=== PATIENT | male | born 1970 | race Caucasian/White ===

== ENCOUNTER 2017-08-06 13:41 | Observation (INO) | payer BC ==
[~2017-08-06] VITALS: Ht 177.8 cm; Wt 89.8 kg
[2017-08-06] MEDS ORDERED: ASPIRIN 81 MG CHEW PO STA (14:17)
[2017-08-06] MEDS ORDERED: LANS15CA6 PO (14:24)
[2017-08-06] MEDS ORDERED: ATOR-24 PO (14:24)
[2017-08-06] MEDS ORDERED: ASPI81TA28 PO (14:24)
[2017-08-06] MEDS ORDERED: BYS/5 PO (14:24)
--- NOTE | 2017-08-06 14:26 | DIAGNOSTIC IMAGING REPORT ---
CHEST ONE VIEW PORTABLE HISTORY: Atypical CHEST PAIN COMPARISON: None. FINDINGS: The lungs are clear. Cardiac silhouette is normal in size. No pleural effusions. No pneumothorax. Poststernotomy changes. IMPRESSION: No acute process. Electronically signed by: Jason Mendoza M.D. 08/06/2017 2:24 PM Dictated Date/Time: 08/06/2017 2:24 PM
[2017-08-06] MEDS ORDERED: NITROGLYCERIN 0.4 MG SL PER TAB CHARGE SL PRN (14:30)
[2017-08-06 14:32] LABS: PTT PATIENT 25.7 SECONDS (21.0-31.0)
[2017-08-06 14:35] LABS: HEMOGLOBIN 14.1 g/dL (14.0-18.0); MEAN CELL VOLUME 93.8 fL (80-100); MEAN CORPUSCULAR HEMOGLOBIN 32.3 pg (25-34); MEAN CORPUSCULAR HGB CONC 34.4 g/dl (32-36); RED CELL DISTRIBUTION WIDTH SD 40.2 fL (36.4-46.3)
[2017-08-06 14:39] LABS: ALBUMIN 3.6 gm/dl (3.4-5.0); ALT/SGPT 21 U/L (12-78); BLOOD UREA NITROGEN 13 mg/dl (7-18); CALCIUM 8.8 mg/dl (8.5-10.1); CARBON DIOXIDE 26 mmol/L (21-32); CREATININE 0.93 mg/dl (0.60-1.40); GLUCOSE 86 mg/dl (70-99); LIPASE 223 U/L (73-393); POTASSIUM 4.1 mmol/L (3.5-5.1); SODIUM 139 mmol/L (136-145)
[2017-08-06 14:43] LABS: MEAN PLATELET VOLUME 13.6 fL (7.4-10.4); PLATELET COUNT 108 K/uL (130-400)
[2017-08-06 14:44] LABS: ALKALINE PHOSPHATASE 81 U/L (45-117); AST/SGOT 14 U/L (15-37); BASO % 0.3 %; BASO ABS # 0.02 K/uL (0-0.2); EOS ABS # 0.15 K/uL (0-0.5); IG# 0.02 K/uL (0.00-0.02); LYMPH % 19.7 %; LYMPH ABS # 1.46 K/uL (1.2-3.4); MONO % 8.1 %; NEUT % 69.6 %; NEUT ABS # 5.15 K/uL (1.4-6.5); TOTAL PROTEIN 6.7 gm/dl (6.4-8.2)
--- NOTE | 2017-08-06 15:53 | EMERGENCY ROOM VISIT NOTE ---
History Report prepared by Rosibel: Rosario Perry Under the Supervision of: Dr. Jaylon Martino M.D. First contact with patient: 14:04 Chief Complaint: CHEST PAIN Stated Complaint: CHEST PAIN,ARM PAIN,NAUSEA,HEART SURGERY PT Nursing Triage Summary: pt reports chest pain started on friday has hx of open heart surgery. went to [facility] told he was lying about cp. pt reports feels like stabbing. radiates in left shoulder and arm. feels sob and dizzy. has heartburn. heart surgery in [facility] History of Present Illness The patient is a 46 year old white male with a past medical history of CABG, hypertension who presents to the ED with a cc of persistent left chest pain beginning this morning. The pain started while he was walking. He describes the pain as sharp. He had the same chest pain 2 days ago which occurred while he was walking. He notes he had similar pain prior to his CABG 3 years ago. He currently rates his discomfort as a 4-5/10 in severity. It was worse at onset. Positive left arm pain, left shoulder pain, SOB, dizziness, nausea, diaphoresis. Negative cough, fever, chills, leg swelling, leg pain. He is on baby aspirin. Source of History: patient Onset: this morning Position: chest (left) Symptom Intensity: 4-5/10 Quality: sharp Timing: other (persistent) Associated Symptoms: + diaphoresis, + SOB, + nausea, No fevers, No chills, No cough Note: Pt reports left shoulder pain, left arm pain, dizziness. Pt denies leg swelling/ pain. Review of Systems See HPI for pertinent positives and negatives. A total of ten systems were reviewed and were otherwise negative. Past Medical & Surgical Medical Problems: (1) Chest pain in adult Surgical Problems: (1) S/P CABG (coronary artery bypass graft) Family History No pertinent family history stated. Social History Smoking Status: Current Every Day Smoker Marital Status: Occupation Status: employed Current/Historical Medications Scheduled Aspirin (Aspirin Ec), 81 MG PO DAILY Atorvastatin (Lipitor), 40 MG PO HS Lansoprazole (Prevacid), 15 MG PO DAILY Nebivolol Hcl (Bystolic), 5 MG PO DAILY Allergies Coded Allergies: Penicillins (Unverified Allergy, Unknown, ., 08/06/17) Physical Exam Vital Signs Date Time Temp Pulse Resp B/P (MAP) Pulse Ox O2 Delivery O2 Flow Rate FiO2 08/06/17 17:31 60 18 125/84 95 Room Air 08/06/17 14:30 75 17 131/94 96 Room Air 08/06/17 14:28 96 Room Air 08/06/17 14:27 80 16 140/91 96 Room Air 08/06/17 14:01 75 08/06/17 13:43 36.3 98 18 148/95 98 Room Air Physical Exam GENERAL: Awake, alert, well-appearing, NAD HENT: Normocephalic, atraumatic. EYES: Normal conjunctiva. Sclera non-icteric. NECK: Supple. No nuchal rigidity. FROM. RESPIRATORY: CTAB, no rhonchi, wheezing, crackles CARDIAC: RRR, no MRG ABDOMEN: Soft, NTND, BS+ MSK: Midline sternotomy scar. No reproducible chest wall TTP. No calf pain. Negative Librado's sign. No pretibial edema. NEURO: GCS 15, CN 2-12 intact, moves all 4s on command SKIN: No rash or jaundice noted. Medical Decision & Procedures ER Provider Diagnostic Interpretation: Radiology results as stated below per my review and radiologist interpretation: CHEST ONE VIEW PORTABLE HISTORY: Atypical CHEST PAIN COMPARISON: None. FINDINGS: The lungs are clear. Cardiac silhouette is normal in size. No pleural effusions. No pneumothorax. Poststernotomy changes. IMPRESSION: No acute process. Electronically signed by: Jason Mendoza M.D. 08/06/2017 2:24 PM Dictated Date/Time: 08/06/2017 2:24 PM Laboratory Results 08/06/17 14:00 Red Blood Count 4.37, Mean Corpuscular Volume 93.8, Mean Corpuscular Hemoglobin 32.3, Mean Corpuscular Hemoglobin Concent 34.4, Mean Platelet Volume 13.6, Neutrophils (%) (Auto) 69.6, Lymphocytes (%) (Auto) 19.7, Monocytes (%) (Auto) 8.1, Eosinophils (%) (Auto) 2.0, Basophils (%) (Auto) 0.3, Neutrophils # (Auto) 5.15, Lymphocytes # (Auto) 1.46, Monocytes # (Auto) 0.60, Eosinophils # (Auto) 0.15, Basophils # (Auto) 0.02 08/06/17 14:00 Test 08/06/17 14:00 08/06/17 18:03 White Blood Count 7.40 K/uL (4.8-10.8) Red Blood Count 4.37 M/uL (4.7-6.1) Hemoglobin 14.1 g/dL (14.0-18.0) Hematocrit 41.0 % (42-52) Mean Corpuscular Volume 93.8 fL (80-100) Mean Corpuscular Hemoglobin 32.3 pg (25-34) Mean Corpuscular Hemoglobin Concent 34.4 g/dl (32-36) Platelet Count 108 K/uL (130-400) Mean Platelet Volume 13.6 fL (7.4-10.4) Neutrophils (%) (Auto) 69.6 % Lymphocytes (%) (Auto) 19.7 % Monocytes (%) (Auto) 8.1 % Eosinophils (%) (Auto) 2.0 % Basophils (%) (Auto) 0.3 % Neutrophils # (Auto) 5.15 K/uL (1.4-6.5) Lymphocytes # (Auto) 1.46 K/uL (1.2-3.4) Monocytes # (Auto) 0.60 K/uL (0.11-0.59) Eosinophils # (Auto) 0.15 K/uL (0-0.5) Basophils # (Auto) 0.02 K/uL (0-0.2) RDW Standard Deviation 40.2 fL (36.4-46.3) RDW Coefficient of Variation 12.0 % (11.5-14.5) Immature Granulocyte % (Auto) 0.3 % Immature Granulocyte # (Auto) 0.02 K/uL (0.00-0.02) Platelet Estimate DECREASED Prothrombin Time 10.5 SECONDS (9.0-12.0) Prothromb Time International Ratio 1.0 (0.9-1.1) Activated Partial Thromboplast Time 25.7 SECONDS (21.0-31.0) Partial Thromboplastin Ratio 1.0 Anion Gap 8.0 mmol/L (3-11) Est Creatinine Clear Calc Drug Dose 111.2 ml/min Estimated GFR () 113.7 Estimated GFR (Non- 98.1 BUN/Creatinine Ratio 14.0 (10-20) Calcium Level 8.8 mg/dl (8.5-10.1) Total Bilirubin 0.3 mg/dl (0.2-1) Direct Bilirubin < 0.1 mg/dl (0-0.2) Aspartate Amino Transf (AST/SGOT) 14 U/L (15-37) Alanine Aminotransferase (ALT/SGPT) 21 U/L (12-78) Alkaline Phosphatase 81 U/L (45-117) Pro-B-Type Natriuretic Peptide 242 pg/ml (0-450) Total Protein 6.7 gm/dl (6.4-8.2) Albumin 3.6 gm/dl (3.4-5.0) Lipase 223 U/L (73-393) Laboratory results reviewed by me Medications Administered Medications (Trade) Dose Ordered Sig/Mo Route Start Time Stop Time Status Last Admin Dose Admin Aspirin (Aspirin Chew) 243 mg ONE STAT PO 08/06/17 14:17 08/06/17 14:18 DC 08/06/17 14:28 243 MG Nitroglycerin (Nitrostat Tab) 0.4 mg PRN PRN SL 08/06/17 14:30 08/06/17 17:09 DC 08/06/17 14:32 0.4 MG ECG Indication: chest pain Rate (beats per minute): 73 Rhythm: normal sinus Findings: Q waves (lead 3), other (normal axis, normal intervals, no other STS changes or TWI) ED Course 1413: The patient was evaluated in room A3. A complete history and physical exam was performed. 1508: Upon reexamination, the patient was stable. I discussed the test results and treatment plan with him. The patient will be evaluated for further management. 1525: I discussed the patient's case with Dr. Acuña, [facility] [place]. The patient will be evaluated for further treatment and disposition. Medical Decision The patient is a 46 year old white male with a past medical history of CABG, hypertension who presents to the ED with a cc of persistent left chest pain beginning this morning. Differential diagnosis: Etiologies such as cardiac ischemia, aortic dissection, pulmonary embolism, pneumonia, pneumothorax, musculoskeletal, infections, pericarditis, myocarditis , esophageal rupture, gastrointestinal, as well as others were entertained. Patient was seen and evaluated the bedside. Patient is a prior history of four- vessel CABG. Patient is complaining of some left-sided chest pain that does radiate to his left arm. Patient states is similar to the prior time when he had his [facility]. Patient does take a baby aspirin but no other additional medications with the exception of a possible statin. Patient states he was seen at [facility] 2 days ago and he was observed but he said no additional testing was done. Patient was given the rest of his full dose aspirin along with 3 nitroglycerin. Patient's chest pain was 3-4 out of 10. Patient denies any prior history of PE or DVT. EKG appears nonischemic patient has a negative chest x-ray. I did speak to the hospitalist given the patient's high risk next nature and chest pain. Patient was to be evaluated and treated per the medicine service. Medication Reconcilliation Current Medication List: was personally reviewed by me Blood Pressure Screening Patient's blood pressure: Elevated blood pressure Blood pressure disposition: Referred to PCP Consults Time Called: 1509 Consulting Physician: Dr. Acuña, [facility] [place]ist Returned Call: [phone] Discussed the patient's case. The patient will be evaluated for further treatment and disposition. Impression Primary Impression: Atypical chest pain Scribe Attestation The scribe's documentation has been prepared under my direction and personally reviewed by me in its entirety. I confirm that the note above accurately reflects all work, treatment, procedures, and medical decision making performed by me. Departure Information Dispostion Being Evaluated By Hospitalist Referrals No Doctor, Assigned (PCP) Patient Instructions My [facility]
[2017-08-06] MEDS ORDERED: ONDANSETRON INJ 2 MG/ML 2 ML VIAL IV PRN (16:30)
[2017-08-06] MEDS ORDERED: MAGNESIUM HYDROXIDE SUSP 30 ML UDC PO PRN (16:30)
[2017-08-06] MEDS ORDERED: POLYETHYLENE (MIRALAX) 17 GM PACK PO PRN (16:30)
[2017-08-06] MEDS ORDERED: IV FLUIDS COMPLETED PRN (16:30)
[2017-08-06] MEDS ORDERED: ALUMINUM/MAGNESIUM/SIMETH (MAALOX MAX) 30 ML UDC PO PRN (16:30)
[2017-08-06] MEDS ORDERED: ACETAMINOPHEN 325 MG TAB PO PRN (16:30)
[2017-08-06] MEDS ORDERED: ZOLPIDEM TARTRATE 5 MG TAB PO PRN (16:30)
--- NOTE | 2017-08-06 16:42 | History and Physical ---
History & Physical Date & Time of Service: Aug 06, 2017 at 16:25 Chief Complaint: Chest Pain,Arm Pain,Nausea,Heart Surgery Pt Primary Care Physician: No Doctor, Assigned History of Present Illness Source: patient 46 y/o M Hx HTN, HPL, smoker, CAD, - 4 vessel CABG 2013. Presents with central CP intermittent for 2-3 days. Initially occurred 2 days ago while walking and was accompanied by SOB, nausea and diaphoresis, radiating to his L arm. Pain recurred today and was relieved by NTG in the ER. He compares the pain to the pain which preceded his diagnosis of CAD and CABG 3 years ago. Past Medical/Surgical History 1) CAD - 4 vessel CABG 2013 2) HTN 3) HPL 4) Smoker Family History Both parents owing to heart disease - CAD and CHF - in their 80s. Father had first NM in his 40s. Sister had an NM at age 38. 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 Smoking Status: Current Every Day Smoker Marital Status: Occupational Status: employed Allergies Coded Allergies: Penicillins (Unverified Allergy, Unknown, ., 08/06/17) Home Medications Scheduled Aspirin (Aspirin Ec), 81 MG PO DAILY Atorvastatin (Lipitor), 40 MG PO HS Lansoprazole (Prevacid), 15 MG PO DAILY Nebivolol Hcl (Bystolic), 5 MG PO DAILY Review of Systems Constitutional: No fever, No chills, No sweats Eyes: No worsening of vision ENT: No hearing loss, No unusual epistaxis, No nasal symptoms Respiratory: No cough, No sputum, No wheezing Cardiovascular: No chest pain, No orthopnea, No PND Abdomen: No pain, No vomiting Musculoskeletal: No joint pain Genitourinary - Male: No hematuria, No dysuria, No urinary frequency, No urinary urgency Neurologic: No memory loss, No paralysis, No weakness Psychiatric: No depression symptoms Endocrine: No fatigue Hematologic / Lymphatic: No abnormal bleeding/bruising Integumentary: No rash Allergic / Immunologic: No environmental allergies Physical Exam Vital Signs Date Time Temp Pulse Resp B/P (MAP) Pulse Ox O2 Delivery O2 Flow Rate FiO2 08/06/17 14:30 75 17 131/94 96 Room Air 08/06/17 14:28 96 Room Air 08/06/17 14:27 80 16 140/91 96 Room Air 08/06/17 14:01 75 08/06/17 13:43 36.3 98 18 148/95 98 Room Air General Appearance: WD/WN, no apparent distress Head: normocephalic Eyes: normal inspection ENT: normal ENT inspection, pharynx normal Neck: supple, no JVD Respiratory/Chest: chest non-tender, lungs clear, normal breath sounds Cardiovascular: regular rate, rhythm, no edema, no gallop Abdomen/GI: normal bowel sounds, non tender, soft Back: normal inspection, no CVA tenderness Extremities/Musculoskelatal: normal inspection, no calf tenderness, normal capillary refill Neurologic/Psych: housing management officer II-XII nml as tested, no motor/sensory deficits, alert, oriented x 3 Skin: normal color, warm/dry, no rash Diagnostics Laboratory Results Results Past 24 Hours Test 08/06/17 14:00 Range/Units White Blood Count 7.40 4.8-10.8 K/uL Red Blood Count 4.37 4.7-6.1 M/uL Hemoglobin 14.1 14.0-18.0 g/dL Hematocrit 41.0 42-52 % Mean Corpuscular Volume 93.8 80-100 fL Mean Corpuscular Hemoglobin 32.3 25-34 pg Mean Corpuscular Hemoglobin Concent 34.4 32-36 g/dl Platelet Count 108 130-400 K/uL Mean Platelet Volume 13.6 7.4-10.4 fL Neutrophils (%) (Auto) 69.6 % Lymphocytes (%) (Auto) 19.7 % Monocytes (%) (Auto) 8.1 % Eosinophils (%) (Auto) 2.0 % Basophils (%) (Auto) 0.3 % Neutrophils # (Auto) 5.15 1.4-6.5 K/uL Lymphocytes # (Auto) 1.46 1.2-3.4 K/uL Monocytes # (Auto) 0.60 0.11-0.59 K/uL Eosinophils # (Auto) 0.15 0-0.5 K/uL Basophils # (Auto) 0.02 0-0.2 K/uL RDW Standard Deviation 40.2 36.4-46.3 fL RDW Coefficient of Variation 12.0 11.5-14.5 % Immature Granulocyte % (Auto) 0.3 % Immature Granulocyte # (Auto) 0.02 0.00-0.02 K/uL Platelet Estimate DECREASED Prothrombin Time 10.5 9.0-12.0 SECONDS Prothromb Time International Ratio 1.0 0.9-1.1 Activated Partial Thromboplast Time 25.7 21.0-31.0 SECONDS Partial Thromboplastin Ratio 1.0 Sodium Level 139 136-145 mmol/L Potassium Level 4.1 3.5-5.1 mmol/L Chloride Level 105 98-107 mmol/L Carbon Dioxide Level 26 21-32 mmol/L Anion Gap 8.0 3-11 mmol/L Blood Urea Nitrogen 13 7-18 mg/dl Creatinine 0.93 0.60-1.40 mg/dl Est Creatinine Clear Calc Drug Dose 111.2 ml/min Estimated GFR () 113.7 Estimated GFR (Non- 98.1 BUN/Creatinine Ratio 14.0 10-20 Random Glucose 86 70-99 mg/dl Calcium Level 8.8 8.5-10.1 mg/dl Total Bilirubin 0.3 0.2-1 mg/dl Direct Bilirubin < 0.1 0-0.2 mg/dl Aspartate Amino Transf (AST/SGOT) 14 15-37 U/L Alanine Aminotransferase (ALT/SGPT) 21 12-78 U/L Alkaline Phosphatase 81 45-117 U/L Troponin I < 0.015 0-0.045 ng/ml Pro-B-Type Natriuretic Peptide 242 0-450 pg/ml Total Protein 6.7 6.4-8.2 gm/dl Albumin 3.6 3.4-5.0 gm/dl Lipase 223 73-393 U/L Normal EKG Impression Assessment and Plan 46 y/o M Hx HTN, HPL, smoker, CAD, - 4 vessel CABG 2013. Presents with central CP intermittent for 2-3 days. Initially occurred 2 days ago while walking and was accompanied by SOB, nausea and diaphoresis, radiating to his L arm. Pain recurred today and was relieved by NTG in the ER. He compares the pain to the pain which preceded his diagnosis of CAD and CABG 3 years ago. 1) CAD/Chest pain - the pt states that he had some related symptoms 6 months ago and had a normal nuclear stress test at the time. If his pain continues to recur, we may then want to contact his gis analyst in [place] and discuss potential catheterization. He remains on ASA, statin therapy and a B macarena. Will initiate full-dose anticoagulation with any EKG changes or a troponin increase. 2) HTN - cont Nebivolol 3) HPL - cont Atorvastatin 4) Platelet count is slightly low - will repeat AM Full code - Lovenox prophylaxis Total time for this admit including review of labs, meds, imaging, EKG - discussion with pt and ER attending - 34 min Level of Care Telemetry Resuscitation Status FULL RESUSCITATION VTE Prophylaxis VTE Risk Assessment Done? Y/N: Yes Risk Level: Very Low Given or contraindicated: Enoxaparin (Lovenox)SQ
[2017-08-06 18:47] VITALS: BP 147/96; PULSE 67; TEMP 36.8; O2SAT 98; Ht 177.8 cm; Wt 89.8 kg
[2017-08-06] MEDS ORDERED: ENOXAPARIN 40 MG/0.4 ML SYR SC SCH (19:30)
[2017-08-06 20:00] VITALS: O2SAT 95
[2017-08-06] MEDS: NITROGLYCERIN 0.4 MG SL PER TAB CHARGE SL PRN (20:09)
[2017-08-06 20:10] VITALS: BP 121/69; PULSE 65; O2SAT 96
[2017-08-06 20:15] VITALS: BP 129/80; PULSE 69; O2SAT 95
[2017-08-06] MEDS: ATORVASTATIN 40 MG TAB PO SCH (21:22)
[2017-08-07] VITALS (19 sets, daily range): BP systolic 103–127; BP diastolic 62–84; PULSE 53–72; TEMP 36.3–36.8; O2SAT 95–98
[2017-08-07] MEDS: NITROGLYCERIN 0.4 MG SL PER TAB CHARGE SL PRN (05:46)
[2017-08-07 07:17] LABS: HEMATOCRIT 44.4 % (42-52); HEMOGLOBIN 15.8 g/dL (14.0-18.0); MEAN CELL VOLUME 93.3 fL (80-100); MEAN CORPUSCULAR HEMOGLOBIN 33.2 pg (25-34); MEAN CORPUSCULAR HGB CONC 35.6 g/dl (32-36); MEAN PLATELET VOLUME 13.3 fL (7.4-10.4); PLATELET COUNT 115 K/uL (130-400); RED CELL DISTRIBUTION WIDTH CV 12.1 % (11.5-14.5); WHITE BLOOD COUNT 7.51 K/uL (4.8-10.8)
[2017-08-07] MEDS: PANTOprazole SOD 40 MG TAB PO SCH (07:32)
[2017-08-07] MEDS: NEBIVOLOL HCL 5 MG TAB PO SCH (07:32)
[2017-08-07] MEDS: ASPIRIN 81 MG ECTAB PO SCH (07:33)
[2017-08-07] MEDS ORDERED: NITROGLYCERIN 2% OINTMENT 30GM TUBE EXT SCH ×2 (08:45→15:00)
[2017-08-07] MEDS ORDERED: NURSING VERBAL MED ORDER ONE ×2 (08:45→12:45)
[2017-08-07] MEDS ORDERED: SODIUM CHLORIDE 0.9% 1000ML 1,000 ML IV SCH (09:15)
[2017-08-07] MEDS ORDERED: HEPARIN IV LOW DOSE NO BOLUS SCH (09:18)
[2017-08-07 09:19] LABS: CHOLESTEROL 166 mg/dl (0-200); LDL CHOLESTEROL CALCULATED 88 mg/dl
--- NOTE | 2017-08-07 09:30 | Progress Note ---
Subjective Date of Service: Aug 07, 2017. Subjective Pt evaluation today including: conversation w/ patient, conversation w/ family ( at bedside), physical exam, chart review, lab review, conversation w/ pci security consultant (cardiology), review of inpatient medication list Pain: central chest pain, radiates to left shoulder/upper arm PO Intake: npo Voiding: no voiding problems tele stable overnight reports he had chest pain, exertional, this past Friday while at work in [place] was admitted to [facility] for observation - serial troponins were negative; did not have echo, CT chest, or stress test since d/c from [place] he has had intermittent central CP - sharp, 05/06 when it is at its worst; at other times it is "heavy" and tight has mild dyspnea w/ the pain pain is always relieved with nitro overnight had sharp, 05/06 pain once again, relieved w/ nitro had 4-vessel CABG at [facility] in [place], [place] 4 years ago had negative nuclear stress test by his rn examiner about 6 months ago denies h/o PE or known aneurysm continues to smoke denies right arm pain or symptoms Problem List Medical Problems: (1) Atypical chest pain Status: Acute Review of Systems Constitutional: No fever Respiratory: + shortness of breath, + dyspnea at rest, No cough, No sputum, No dyspnea on exertion Cardiac: + see HPI, + chest pain, No orthopnea, No PND Abdomen: No pain Objective Vital Signs Date Time Temp Pulse Resp B/P (MAP) Pulse Ox O2 Delivery O2 Flow Rate FiO2 08/07/17 07:18 36.6 53 20 126/76 (93) 97 Room Air 08/07/17 05:47 65 122/65 (84) 08/07/17 04:40 97 Nasal Cannula 2.0 08/07/17 03:29 36.6 61 15 127/84 (98) 97 Room Air 08/07/17 00:00 36.3 72 123/80 (94) 97 Room Air 08/07/17 00:00 98 Nasal Cannula 2.0 08/06/17 20:15 69 18 129/80 (96) 95 Room Air 08/06/17 20:10 65 18 121/69 (86) 96 Room Air 08/06/17 20:00 95 Nasal Cannula 2.0 08/06/17 18:47 36.8 67 18 147/96 98 Room Air 08/06/17 17:31 60 18 125/84 95 Room Air 08/06/17 14:30 75 17 131/94 96 Room Air 08/06/17 14:28 96 Room Air 08/06/17 14:27 80 16 140/91 96 Room Air 08/06/17 14:01 75 08/06/17 13:43 36.3 98 18 148/95 98 Room Air Physical Exam General Appearance: no apparent distress ENT: pharynx normal Neck: no JVD Respiratory/Chest: chest non-tender, lungs clear, normal breath sounds, no respiratory distress, no accessory muscle use Cardiovascular: regular rate, rhythm, no gallop, no murmur Abdomen: normal bowel sounds, non tender, soft, no organomegaly Extremities: no pedal edema Neurologic/Psychiatric: alert, oriented x 3 Laboratory Results Last 24 Hours Test 08/06/17 14:00 08/06/17 18:03 08/07/17 00:19 08/07/17 06:14 White Blood Count 7.40 K/uL 7.51 K/uL Red Blood Count 4.37 M/uL 4.76 M/uL Hemoglobin 14.1 g/dL 15.8 g/dL Hematocrit 41.0 % 44.4 % Mean Corpuscular Volume 93.8 fL 93.3 fL Mean Corpuscular Hemoglobin 32.3 pg 33.2 pg Mean Corpuscular Hemoglobin Concent 34.4 g/dl 35.6 g/dl Platelet Count 108 K/uL 115 K/uL Mean Platelet Volume 13.6 fL 13.3 fL Neutrophils (%) (Auto) 69.6 % Lymphocytes (%) (Auto) 19.7 % Monocytes (%) (Auto) 8.1 % Eosinophils (%) (Auto) 2.0 % Basophils (%) (Auto) 0.3 % Neutrophils # (Auto) 5.15 K/uL Lymphocytes # (Auto) 1.46 K/uL Monocytes # (Auto) 0.60 K/uL Eosinophils # (Auto) 0.15 K/uL Basophils # (Auto) 0.02 K/uL RDW Standard Deviation 40.2 fL 41.0 fL RDW Coefficient of Variation 12.0 % 12.1 % Immature Granulocyte % (Auto) 0.3 % Immature Granulocyte # (Auto) 0.02 K/uL Platelet Estimate DECREASED Prothrombin Time 10.5 SECONDS Prothromb Time International Ratio 1.0 Activated Partial Thromboplast Time 25.7 SECONDS Partial Thromboplastin Ratio 1.0 Sodium Level 139 mmol/L Potassium Level 4.1 mmol/L Chloride Level 105 mmol/L Carbon Dioxide Level 26 mmol/L Anion Gap 8.0 mmol/L Blood Urea Nitrogen 13 mg/dl Creatinine 0.93 mg/dl Est Creatinine Clear Calc Drug Dose 111.2 ml/min Estimated GFR () 113.7 Estimated GFR (Non- 98.1 BUN/Creatinine Ratio 14.0 Random Glucose 86 mg/dl Calcium Level 8.8 mg/dl Total Bilirubin 0.3 mg/dl Direct Bilirubin < 0.1 mg/dl Aspartate Amino Transf (AST/SGOT) 14 U/L Alanine Aminotransferase (ALT/SGPT) 21 U/L Alkaline Phosphatase 81 U/L Troponin I < 0.015 ng/ml < 0.015 ng/ml < 0.015 ng/ml Pro-B-Type Natriuretic Peptide 242 pg/ml Total Protein 6.7 gm/dl Albumin 3.6 gm/dl Lipase 223 U/L Assessment and Plan 46yo male with: 1. ongoing, crescendoing chest pain - concerning for unstable angina in light of known, severe CAD. It is rather odd, however, that if this pain is in fact ischemic/coronary in origin that he has not had a single positive biomarker over the last few days between our hospital and [place]. With that said will Rx for unstable angina until proven otherwise. Keep NPO. Cont asa, statin, beta macarena. Start low dose heparin infusion. Repeat another troponin now. check lipids & hemoglobin a1c. I discussed his case with Dr. Ahn, on-call for cath today, who will see him in consult. His symptoms and history do not suggest aneurysm, dissection or PE but if his symptoms are deemed NOT due to ischemia then consider CTA chest to r/o those issues. No symptoms to suggest pericarditis. 2. FEN - keep NPO, start NS at 75cc/hr. lytes are stable. 3. hyperlipidemia - cont statin, check lipids. 4. tobacco use - counselor aid to quit. 5. CAD s/p CABG - records consent obtained to obtain records from [facility] in [place], [place]. See #1 above. 6. DVT proph - systemic heparin; hold lovenox SC. updated Continued [facility] stay due to: multiple IV medications needed Discharge planning: home
[2017-08-07 09:38] LABS: HEMOGLOBIN A1C 5.1 % (4.5-5.6)
[2017-08-07] MEDS ORDERED: HEPARIN 25,000 UNIT/500ML D5W 500 ML IV PRN ×2 (09:45→18:30)
--- NOTE | 2017-08-07 13:53 | CARDIOLOGY CONSULTATION ---
DATE OF CONSULTATION: 08/07/2017 DATE OF CONSULTATION: 08/07/2017 CONSULTATION REQUESTED BY: Dr. Aguayo. REASON FOR CONSULTATION: Chest pain. HISTORY OF PRESENT ILLNESS: Mr. Whyte is a 46-year-old man with a history of coronary artery disease status post 4-vessel CABG in 2013, who was admitted with intermittent chest pain over the last several days. Cardiology consulted for history of coronary artery disease and concern for unstable angina. The patient is from the [facility] and is here for work. He was at work on Friday when developed substernal chest pain that was severe, lasting seconds to minutes. The pain was so severe he thought he was going to pass out and was associated with shortness of breath. He states the pain is very reminiscent to what he had preceding his bypass surgery and as a result presented to the [place] [facility]. There, reportedly cardiac enzymes were negative and he was sent home without additional testing. He states he has not felt well since that time and yesterday had recurrent substernal chest pain and as a result presented to the [facility]. Upon arrival, he was hemodynamically stable. His EKG was unremarkable and his troponins have been negative since admission. He has had intermittent brief chest tightness, but no prolonged episodes of pain. The patient states that had a stress test done in October, which was reportedly negative. Has had no additional cardiac testing since his bypass surgery. PAST MEDICAL HISTORY: 1. Coronary artery disease, 4-vessel CABG in [place], [place] in 2013. 2. Hypertension. 3. Hyperlipidemia. He is an ongoing smoker, smoking a pack per day. FAMILY HISTORY: Significant family history of coronary artery disease. Father had an IL in his 40s. His sister had an IL in her 30s. Father eventually from cardiac disease related to complications. Mother also had an IL later in life. SOCIAL HISTORY: He smokes 1 pack of cigarettes per day. He has been smoking since he was 13. Drinks 4-5 drinks several times a week. ALLERGIES: PENICILLINS. HOME MEDICATIONS: Include aspirin 81, atorvastatin 40, pravastatin 15 and Bystolic 5 mg daily. REVIEW OF SYSTEMS: Ten point review of systems was completed and otherwise negative unless noted in the HPI. PHYSICAL EXAMINATION: VITAL SIGNS: Temperature 36.3, pulse 55, blood pressure 108/72, satting 95% on room air. GENERAL: The patient appears comfortable in no acute distress. HEAD, EYES, EARS, NOSE, AND THROAT: Sclerae are anicteric. Oropharynx is clear. Mucous membranes are moist. NECK: Supple with no lymphadenopathy. He has no jugular venous distention. LUNGS: Clear to auscultation bilaterally. He has a well-healed surgical incision over his sternum. CARDIAC: Regular. He has no appreciable murmurs. ABDOMEN: Soft, nontender. EXTREMITIES: Warm. He has 2+ radial pulses, 2+ femoral pulses bilaterally and intact distal pulses in his lower extremities. He has no significant lower extremity edema. SKIN: Shows no rashes or lesions. NEUROLOGIC EXAMINATION: Nonfocal. PSYCHIATRIC: He is alert and oriented and appropriate. LABORATORY DATA: White blood cell count 7.5, hemoglobin 15.8, platelets 115, sodium of 139, potassium 4.1, BUN 13, creatinine 0.9. LFTs within normal limits. Troponins have been negative x4. His cholesterol is 166, triglycerides 135, HDL of 51 and an LDL of 88. Chest x-ray showed no acute cardiopulmonary process. Serial EKGs reviewed. Most recent EKG this morning showed sinus bradycardia with a ventricular rate of 53, no dynamic ST changes. IMPRESSION: 1. Concern for acute coronary syndrome/unstable angina. 2. History of coronary artery disease status post 4-vessel coronary artery bypass graft. 3. Hypertension. 4. Thrombocytopenia. Mr. Whyte has a significant history of coronary artery disease and comes today with multiple episodes of chest pain reminiscent of his prior pain necessitating revascularization. He has been started on heparin infusion for concern for unstable angina. I feel that the risk of acute coronary syndrome is elevated and in that setting feel that further risk stratification is warranted. As the patient is having typical symptoms and had a prior negative stress test agree with proceeding with cardiac catheterization directly. We will plan to perform cardiac catheterization via right common femoral artery later today. In the interim, please keep patient n.p.o. Continue heparin infusion. Further recommendations pending findings of cardiac cath. The risks, benefits, alternatives of procedure were discussed with patient and he is willing to proceed. Thank you for consultation.
[2017-08-07] MEDS: NICOTINE 14 MG/24 HR TDSY TD SCH (13:58)
[2017-08-07] MEDS: MoRPHine SULFATE 2 MG/ML CARP IV PRN ×2 (13:59→19:19)
[2017-08-07] MEDS ORDERED: FENTANYL CITRATE INJ 50 MCG/1 ML 2 ML VIAL ONE (14:28)
[2017-08-07] MEDS ORDERED: MIDAZOLAM HCL 1 MG/ML 2ML VIAL ONE (14:28)
--- NOTE | 2017-08-07 15:52 | Pre Sedation Assessment ---
Pre Sedation Assessment General Date of Sedation: Aug 07, 2017. Vital Signs Past 12 Hours Date Time Temp Pulse Resp B/P (MAP) Pulse Ox O2 Delivery O2 Flow Rate FiO2 08/07/17 15:40 59 16 134/81 (98) 94 Room Air 08/07/17 15:32 65 16 134/82 (99) 100 Room Air 08/07/17 12:00 Room Air 08/07/17 11:38 36.3 55 20 108/72 (84) 95 Room Air 08/07/17 08:00 Room Air 08/07/17 07:18 36.6 53 20 126/76 (93) 97 Room Air 08/07/17 05:47 65 122/65 (84) 08/07/17 04:40 97 Nasal Cannula 2.0 Review Cardiovascular: regular rate, rhythm, no edema Lungs: chest non-tender, lungs clear Pre-Sedation Airway Assessment Smoking Status: Current Every Day Smoker Hx of Sleep Apnea: No Hx of difficult intubation: No Short Thick Neck: No Thyro-mental Distance: > 3 Finger Breadths Oral Cavity: WNL Mallampati Classification: Class III ASA Classification: Class II NPO Status Date of Last Intake of Fluids: Aug 07, 2017 Time of Last Intake of Fluids: 1015 Date of Last Intake of Solids: Aug 06, 2017 Time of Last Intake of Solids: 1800 Procedure Planning Contraindications for Sedation: None Current Medications Reviewed: Yes Notes The planned sedation has been discussed with the patient. Informed Consent was obtained. I have identified the patient, determined the appropriateness of sedation and have assessed the patient immediately prior to the procedure. All medicine(s) and interventions are by my order.
--- NOTE | 2017-08-07 15:53 | Post Sedation Assessment ---
Post Sedation Assessment General Date of Sedation Aug 07, 2017. Vital Signs: Vital Signs Past 12 Hours Date Time Temp Pulse Resp B/P (MAP) Pulse Ox O2 Delivery O2 Flow Rate FiO2 08/07/17 15:40 59 16 134/81 (98) 94 Room Air 08/07/17 15:32 65 16 134/82 (99) 100 Room Air 08/07/17 12:00 Room Air 08/07/17 11:38 36.3 55 20 108/72 (84) 95 Room Air 08/07/17 08:00 Room Air 08/07/17 07:18 36.6 53 20 126/76 (93) 97 Room Air 08/07/17 05:47 65 122/65 (84) 08/07/17 04:40 97 Nasal Cannula 2.0 Post Procedure Recovery Score Activity: (2) Moves 4 extremities * Respiration: (2) Deep breath/cough Circulation: (2) +/-20% PreAnes Value Consciousness: (2) Fully Awake Oxygen Saturation: (2) > 92% On Room Air Post Anesthesia Score: 10 Discharge Sedation Level of Care: Fast Track Phase II Post Sedation Plan On clinical assessment, the patient appears to have tolerated the sedation without complications. Patient is recovering as anticipated. Patient will continue to be monitored by nursing and may be discharged when sedation discharge criteria are met per below protocol. Upon Completions of procedure and additional 15 minutes continue every 5 minute vital signs and the P.A.R. score; then discharge to a Phase I or Fast Track to Phase II per the following guidelines: * Discharge Patient to appropriate Phase II area if PAR is 8 or greater or return to pre- procedure baseline. The post - procedure orders will be as directed. * If PAR score is less than 8 or not return to pre-procedure baseline then patient will follow Phase I monitoring till PAR is reached for Phase II. The Phase I may be done in procedure room or may call to secure a Phase I area. * If naloxone or flumazenil are used for reversal, hold in Phase I for an additional 60 -120 minutes before discharge to Phase II. Please call the Sedation Physician to re-evaluate and complete post-note for discharge to Phase II area. Do NOT discharge from procedure sedation or Phase 1 until post- sedation evaluation note is complete by procedure /sedation MD Sedation Discharge Instructions to be given to the patient at discharge to home.
--- NOTE | 2017-08-07 16:19 | Cardiac Catheterization ---
Procedure Note Procedure Date Aug 07, 2017. 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 Circumflex - Tapers in mid segment and occluded distally. Obtuse marginals occluded ostially. RCA - Dominant, diffuse, proximal to mid 80% disease; distal luminal irregularities. VALLES-LAD - widely patent; distal LAD with luminal irregularities as wraps around apex. SVG-OM2 - large vessel, widely patent; gives off Y graft to OM1 and large ramus SVG-FIELD NATURALIST - Widely patent LVEDP - 15 Arterial Closure: Mynx Summary: 1. Severe 3 vessel [place] coronary artery disease 2. Widely patent VALLES and vein grafts. 3. Normal intracardiac filling pressures. 4. Normal LV function. Recommendations: Continued ASCVD risk factor modification including smoking cessation. Evaluation of non-cardiac causes of chest pain. Hemodynamics Rest Ao: 105/58/81 Final Ao: 99/62/80 LV: 112/15 Recommendations Medical therapy and/or Counseling Specimens None Radiation Exposure (mGy) 2099 Contrast (mls) 165 Fluids (cc crystalloids) 72 Drains None Anesthesia Moderate Procedural Complication(s) None Disposition PCU ACC Data Cardiac Status Clinical evaluation leading to the procedure CAD Presntation: Unstable angina Anginal Classification: CCS IV Heart Failure: No, NYHA Class: CCS I Cardiogenic Shock w/in 24Hrs: No Cardiac Arrest w/in 24Hrs: No Imaging studies past 6 months: No Stress studies past 6 months: No Closure Device Percutaneous Entry Location: Femoral Closure Device: Mynx Recommendations: Medical therapy and/or Counseling Intraprocedure Events Significant Dissection: No Perforation: No
[2017-08-07] MEDS: SODIUM CHLORIDE 0.9% 1000ML 1,000 ML IV SCH ×2 (16:40→20:23)
[2017-08-07] MEDS ORDERED: OPTIRAY 320 IV PRN (18:15)
[2017-08-07] MEDS: ACETAMINOPHEN 325 MG TAB PO PRN (18:39)
[2017-08-07 19:05] LABS: HEMATOCRIT 39.2 % (42-52); HEMOGLOBIN 14.2 g/dL (14.0-18.0); MEAN CELL VOLUME 92.9 fL (80-100); MEAN CORPUSCULAR HEMOGLOBIN 33.6 pg (25-34); MEAN CORPUSCULAR HGB CONC 36.2 g/dl (32-36); MEAN PLATELET VOLUME 12.7 fL (7.4-10.4); PLATELET COUNT 101 K/uL (130-400); RED CELL DISTRIBUTION WIDTH CV 12.2 % (11.5-14.5); WHITE BLOOD COUNT 5.98 K/uL (4.8-10.8)
[2017-08-07 19:06] LABS: BASO % 0.5 %; BASO ABS # 0.03 K/uL (0-0.2); EOS % 1.2 %; EOS ABS # 0.07 K/uL (0-0.5); IG# 0.01 K/uL (0.00-0.02); LYMPH % 29.6 %; LYMPH ABS # 1.77 K/uL (1.2-3.4); MONO % 5.5 %; MONO ABS # 0.33 K/uL (0.11-0.59); NEUT ABS # 3.77 K/uL (1.4-6.5)
[2017-08-07] MEDS: ATORVASTATIN 40 MG TAB PO SCH (21:03)
--- NOTE | 2017-08-07 21:33 | DIAGNOSTIC IMAGING REPORT ---
(CHEST FOR PE) ANGIO WITH CT DOSE: 479.39 mGy.cm HISTORY: Chest pain dyspnea TECHNIQUE: Multiaxial CT images of the chest were performed following the intravenous administration of contrast to evaluate the pulmonary arteries. Maximal intensity projection images were also obtained. A dose lowering technique was utilized adhering to the principles of ALARA. COMPARISON STUDY: None. FINDINGS: Prior median sternotomy. Degenerative changes thoracic spine with no acute process. Several small potential filling defects of the left lower lobe pulmonary tear vasculature felt to be artifactual based on three-dimensional evaluation. Moderate stable cardiomegaly. No focal infiltrate. IMPRESSION: No evidence for pulmonary embolus. The lungs are clear. The above report was generated using voice recognition software. It may contain grammatical, syntax or spelling errors. Electronically signed by: Fredi Lin M.D. 08/07/2017 9:32 PM Dictated Date/Time: 08/07/2017 9:26 PM
[2017-08-08] VITALS (7 sets, daily range): BP systolic 102–129; BP diastolic 67–82; PULSE 54–68; TEMP 36.6–36.8; O2SAT 94–99
[2017-08-08 07:07] LABS: CALCIUM 8.3 mg/dl (8.5-10.1); CREATININE 0.86 mg/dl (0.60-1.40); POTASSIUM 4.3 mmol/L (3.5-5.1)
[2017-08-08 07:19] LABS: HEMATOCRIT 41.6 % (42-52); MEAN CELL VOLUME 92.9 fL (80-100); MEAN CORPUSCULAR HEMOGLOBIN 33.5 pg (25-34); MEAN CORPUSCULAR HGB CONC 36.1 g/dl (32-36); MEAN PLATELET VOLUME 13.9 fL (7.4-10.4); PLATELET COUNT 106 K/uL (130-400); RED CELL DISTRIBUTION WIDTH SD 40.5 fL (36.4-46.3); WHITE BLOOD COUNT 6.81 K/uL (4.8-10.8)
[2017-08-08] MEDS: NICOTINE 14 MG/24 HR TDSY TD SCH (08:07)
[2017-08-08] MEDS: ACETAMINOPHEN 325 MG TAB PO PRN ×2 (08:07→12:37)
[2017-08-08] MEDS: PANTOprazole SOD 40 MG TAB PO SCH (08:07)
[2017-08-08] MEDS: NEBIVOLOL HCL 5 MG TAB PO SCH (08:07)
[2017-08-08] MEDS: ASPIRIN 81 MG ECTAB PO SCH (08:07)
--- NOTE | 2017-08-08 10:24 | Cardiology Follow-Up ---
Subjective Subjective Date of Service: Aug 08, 2017. Pt evaluation today including: conversation w/ patient, conversation w/ family , physical exam, chart review, lab review, review of studies, review of inpatient medication list Additional Details: Still with intermittent chest pain - worse since nitroglycerin patch off. Also with occasional headache. Tele reviewed -- no events. Problem List Medical Problems: (1) Atypical chest pain Status: Acute Review of Systems Constitutional: No fever Respiratory: + dyspnea at rest, No cough, No sputum, No dyspnea on exertion Cardiac: + see HPI, + chest pain, No orthopnea, No PND Abdomen: No pain Heme: No abnormal bleeding/bruising Skin: No rash Objective Vital Signs Last Vital Signs Documentation Date Time Temp Pulse Resp B/P (MAP) Pulse Ox O2 Delivery O2 Flow Rate FiO2 08/08/17 04:00 94 Room Air 08/08/17 04:00 65 114/71 (85) 08/08/17 00:00 36.6 08/07/17 21:50 18 08/07/17 04:40 2.0 Physical Exam: General Appearance: no apparent distress ENT: pharynx normal Neck: no JVD Respiratory/Chest: chest non-tender, lungs clear, normal breath sounds, no respiratory distress Cardiovascular: regular rate, rhythm, no gallop, no murmur Abdomen: normal bowel sounds, non tender, soft, no organomegaly Extremities: no pedal edema, no calf tenderness, + pertinent finding (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 Intact femoral, distal pulses) Neurologic/Psychiatric: alert, oriented x 3 Skin: no rash Assessment and Plan 1. Chest pain. 2. Patent VALLES/vein grafts 3. Severe [place] vessel disease 4. Tobacco abuse Cath yesterday negative for high-risk disease. Still with intermittent chest pain - states worse since off nitro patch - low suspicion for spasm/ microvascular dysfunction but could consider long-acting oral nitrate on discharge. Otherwise continue ASCVD risk factor modification. Will follow-up on TTE, assuming unremarkable OK for discharge from a cardiac standpoint. Continued [facility] stay due to: multiple IV medications needed Discharge planning: home Medications: Current Inpatient Medications Medications (Trade) Dose Ordered Sig/Mo Route Start Time Stop Time Status Last Admin Dose Admin Aspirin (Ecotrin Tab) 81 mg DAILY PO 08/07/17 09:00 09/06/17 08:59 08/08/17 08:07 81 MG Atorvastatin Calcium (Lipitor Tab) 40 mg HS PO 08/06/17 21:00 09/05/17 20:59 08/07/17 21:03 40 MG Pantoprazole Sodium (Protonix Tab) 40 mg DAILY PO 08/07/17 09:00 09/06/17 08:59 08/08/17 08:07 40 MG Nebivolol (Bystolic Tab) 5 mg DAILY PO 08/07/17 09:00 09/06/17 08:59 08/08/17 08:07 5 MG Enoxaparin Sodium (Lovenox Inj) 40 mg Q24H SC 08/06/17 19:30 09/05/17 19:29 Future Hold 08/06/17 20:12 40 MG Al Hydrox/Mg Hydrox/Simethicone (Maalox Max Susp) 15 ml Q4H PRN PO 08/06/17 16:30 09/05/17 16:29 Magnesium Hydroxide (Milk Of Magnesia Susp) 30 ml Q12H PRN PO 08/06/17 16:30 09/05/17 16:29 Zolpidem Tartrate (Ambien Tab) 5 mg HSZ PRN PO 08/06/17 16:30 09/05/17 16:29 Ondansetron HCl (Zofran Inj) 4 mg Q6H PRN IV 08/06/17 16:30 09/05/17 16:29 Nitroglycerin (Nitrostat Tab) 0.4 mg UD PRN SL 08/06/17 16:30 09/05/17 16:29 08/07/17 05:46 0.4 MG Morphine Sulfate (MoRPHine SULFATE INJ) 2 mg Q30M PRN IV 08/06/17 16:30 08/20/17 16:29 08/07/17 19:19 2 MG Polyethylene (Miralax Powder Packet) 17 gm DAILY PRN PO 08/06/17 16:30 09/05/17 16:29 Miscellaneous (Iv Fluids Completed) 1 ea PRN PRN N/A 08/06/17 16:30 08/06/18 16:29 Nicotine (Nicoderm Cq 14MG Patch) 1 patch QAM TD 08/07/17 13:00 09/06/17 12:59 08/08/17 08:07 1 PATCH Miscellaneous (Remove Nicoderm Patch) 1 ea QAM N/A 08/08/17 09:00 09/07/17 08:59 Acetaminophen (Tylenol Tab) 650 mg Q4H PRN PO 08/07/17 16:30 09/06/17 16:29 08/08/17 08:07 650 MG Ioversol (Optiray 320) 125 ml UD PRN IV 08/07/17 18:15 08/11/17 18:14 Lab Results: 08/08/17 06:12 08/08/17 06:12 Test 08/07/17 18:23 08/08/17 06:12 Immature Granulocyte % (Auto) 0.2 % White Blood Count 5.98 K/uL (4.8-10.8) Red Blood Count 4.22 M/uL (4.7-6.1) 4.48 M/uL (4.7-6.1) Hemoglobin 14.2 g/dL (14.0-18.0) Hematocrit 39.2 % (42-52) Mean Corpuscular Volume 92.9 fL (80-100) 92.9 fL (80-100) Mean Corpuscular Hemoglobin 33.6 pg (25-34) 33.5 pg (25-34) Mean Corpuscular Hemoglobin Concent 36.2 g/dl (32-36) 36.1 g/dl (32-36) Platelet Count 101 K/uL (130-400) Mean Platelet Volume 12.7 fL (7.4-10.4) 13.9 fL (7.4-10.4) Neutrophils (%) (Auto) 63.0 % Lymphocytes (%) (Auto) 29.6 % Monocytes (%) (Auto) 5.5 % Eosinophils (%) (Auto) 1.2 % Basophils (%) (Auto) 0.5 % Neutrophils # (Auto) 3.77 K/uL (1.4-6.5) Lymphocytes # (Auto) 1.77 K/uL (1.2-3.4) Monocytes # (Auto) 0.33 K/uL (0.11-0.59) Eosinophils # (Auto) 0.07 K/uL (0-0.5) Basophils # (Auto) 0.03 K/uL (0-0.2) Immature Granulocyte # (Auto) 0.01 K/uL (0.00-0.02) Red Blood Cell Morphology Unremarkable Prothrombin Time 10.6 SECONDS (9.0-12.0) Prothromb Time International Ratio 1.0 (0.9-1.1) Activated Partial Thromboplast Time 26.0 SECONDS (21.0-31.0) Partial Thromboplastin Ratio 1.0 RDW Standard Deviation 40.5 fL (36.4-46.3) RDW Coefficient of Variation 12.0 % (11.5-14.5) Platelet Estimate DECREASED Anion Gap 4.0 mmol/L (3-11) Est Creatinine Clear Calc Drug Dose 120.1 ml/min Estimated GFR () 120.5 Estimated GFR (Non- 104.0 BUN/Creatinine Ratio 13.6 (10-20) Calcium Level 8.3 mg/dl (8.5-10.1) Vitamin B12 Level 480 pg/mL (211-911) Folate 13.43 ng/mL (>5.38)
[2017-08-08] MEDS ORDERED: KETOROLAC TROMETHAMINE 30 MG/ML VIAL IV ONE (11:00)
[2017-08-08] MEDS ORDERED: TRAMADOL HCL 50 MG TAB PO STA (14:38)
--- NOTE | 2017-08-08 17:06 | ECHOCARDIOGRAM REPORT ---
*NOTICE TO RECEIVING [employer] This information is strictly Confidential and protected under [place] law. [place] law prohibits you from making any further disclosure of this information unless further disclosure is expressly permitted by the written consent of the person to whom it pertains or is authorized by law. A general authorization for the release of medical or other information is not sufficient for this purpose. Hospital accepts no responsibility if the information is made available to any other person, INCLUDING THE PATIENT. Interpretation Summary * Name: ANDRADE RIVERA Study Date: 08/08/2017 11:00 AM BP: 114/71 mmHg * Patient Location: .2T\S\S234\S\1 HR: 94 * : 1970 (M/d/yyyy) Gender: Male Height: 70 in * Age: 46 yrs Ethnicity: CA Weight: 194 lb * Ordering Physician: Stuart Aguayo * Referring Physician: Self, Referred * Performed By: Mari Rojas RDCS * * Reason For Study: Chest Pain * BSA: 2.1 m2 * -- Conclusions -- * 1. Normal LV size and wall thickness. * 2. Normal LV systolic function. LVEF 60-65%. No regional wall motion abnormalities. * 3. Mildly dilated RV. Normal RV function. * 4. Mildly dilated right atrium * 5. Normal estimated PA and RA pressures. * 6. Doppler suggestive of possible left to right flow across atrial septum. * 7. No prior studies for comparison. Procedure Details * A complete two-dimensional transthoracic echocardiogram was performed (2D, M-mode, Doppler and color flow Doppler). Left Ventricle * The left ventricle is grossly normal size. * There is normal left ventricular wall thickness. * Ejection Fraction = 60-65%. * No regional wall motion abnormalities noted. Right Ventricle * The right ventricle is mildly dilated. * The right ventricular systolic function is normal as assessed by tricuspid annular plane systolic excursion (TAPSE) (normal >1.5 cm). Atria * The left atrial size is normal. * The right atrium is mild to moderately dilated. * Doppler suggestive of possible left to right flow across atrial septum. Mitral Valve * The mitral valve is grossly normal. * There is no mitral valve stenosis. * There is trace mitral regurgitation. Tricuspid Valve * The tricuspid valve is not well visualized, but is grossly normal. * There is no tricuspid stenosis. * There is trace tricuspid regurgitation. Aortic Valve * Aortic valve sclerosis mild, without significant aortic valvular stenosis. * The aortic valve is trileaflet. * No hemodynamically significant valvular aortic stenosis. * There is no significant aortic regurgitation. Pulmonic Valve * The pulmonary valve is inadequately visualized, but the Doppler data is adequate for interpretation. * There is no pulmonic valvular stenosis. * There is no significant pulmonary regurgitation. * Mild pulmonic valvular regurgitation. Great Vessels * The aortic root and proximal ascending aorta are normal sized. Pericardium/Pleural * There is no pericardial effusion. Great Vessels * There is no evidence of pulmonary hypertension. The PA systolic pressure is less than 36 mmHg. * Normal inferior vena cava size and collapsability with sniff indicates a normal right atrial pressure of 3 mmHg MMode 2D Measurements and Calculations IVSd 1.0 cm IVSs 1.4 cm LVIDd 4.9 cm LVIDs 3.3 cm LVPWd 0.96 cm LVPWs 1.7 cm IVS/LVPW 1.0 FS 33.0 % EDV(Teich) 112.2 ml ESV(Teich) 43.3 ml EF(Teich) 61.4 % EDV(cubed) 116.9 ml ESV(cubed) 35.1 ml EF(cubed) 70.0 % % IVS thick 39.0 % % LVPW thick 77.7 % LV mass(C)d 172.5 grams LV mass(C)dI 83.7 grams/m\S\2 LV mass(C)s 188.7 grams LV mass(C)sI 91.6 grams/m\S\2 SV(Teich) 69.0 ml SI(Teich) 33.5 ml/m\S\2 SV(cubed) 81.8 ml SI(cubed) 39.7 ml/m\S\2 Ao root diam 3.4 cm Ao root area 9.2 cm\S\2 ACS 2.0 cm LA dimension 3.8 cm LA/Ao 1.1 LVAd ap4 29.0 cm\S\2 LVLd ap4 8.7 cm EDV(MOD-sp4) 86.2 ml EDV(sp4-el) 81.8 ml LVAs ap4 16.7 cm\S\2 LVLs ap4 7.0 cm ESV(MOD-sp4) 37.6 ml ESV(sp4-el) 33.7 ml EF(MOD-sp4) 56.4 % EF(sp4-el) 58.8 % LVAd ap2 31.1 cm\S\2 LVLd ap2 8.8 cm EDV(MOD-sp2) 99.9 ml EDV(sp2-el) 93.6 ml LVAs ap2 17.2 cm\S\2 LVLs ap2 7.4 cm ESV(MOD-sp2) 36.6 ml ESV(sp2-el) 34.1 ml EF(MOD-sp2) 63.3 % EF(sp2-el) 63.6 % LVLd %diff 0.82 % EDV(MOD-bp) 93.3 ml LVLs %diff 5.2 % ESV(MOD-bp) 38.1 ml EF(MOD-bp) 59.1 % SV(MOD-sp4) 48.6 ml SI(MOD-sp4) 23.6 ml/m\S\2 SV(MOD-sp2) 63.2 ml SI(MOD-sp2) 30.7 ml/m\S\2 SV(MOD-bp) 55.2 ml SI(MOD-bp) 26.8 ml/m\S\2 SV(sp4-el) 48.0 ml SI(sp4-el) 23.3 ml/m\S\2 SV(sp2-el) 59.5 ml SI(sp2-el) 28.9 ml/m\S\2 Doppler Measurements and Calculations MV E max renee 62.3 cm/sec MV A max renee 46.8 cm/sec MV E/A 1.3 MV dec time 0.45 sec Ao V2 max 129.4 cm/sec Ao max PG 6.7 mmHg Ao max PG (full) 3.0 mmHg LV V1 max PG 3.7 mmHg LV V1 max 96.6 cm/sec PA V2 max 89.7 cm/sec PA max PG 3.2 mmHg PI max renee 124.2 cm/sec PI max PG 6.2 mmHg PI dec slope 199.7 cm/sec\S\2 PI P1/2t 182.2 msec TR max renee 201.9 cm/sec
[2017-08-08] MEDS ORDERED: OPTIRAY 320 IV PRN (17:30)
--- NOTE | 2017-08-08 17:35 | Progress Note ---
Subjective Date of Service: Aug 08, 2017. Subjective Pt evaluation today including: conversation w/ patient, conversation w/ family (), physical exam, chart review, lab review, review of studies (CTA chest / echo), conversation w/ project consultant (cardiology, radiology), review of inpatient medication list Pain: see below PO Intake: normal Voiding: no voiding problems tele normal overnight he continues to have left-sided chest pain intermittent at times, and sometimes constant 3/10 on pain scale some pleuritic component to it no true dyspnea no radiation of the pain to the back, neck, arms, or abdomen denies burping, belching, worsening of symptoms with food intake, nausea, or emesis he did have headache overnight, and again today has had such initially headache was the neck, now it is over the left christian and it "shoots into the forehead" no history of headaches this afternoon he received toradol relieved his chest pain, then it returned while he took a walk with his in the hallway did not help his headache patient also reports chronic chest pain when he has intercourse with his denies any back pain Problem List Medical Problems: (1) Atypical chest pain Status: Acute Review of Systems Constitutional: No fever, No chills Respiratory: No cough, No sputum, No wheezing, No shortness of breath, No dyspnea on exertion Cardiac: + see HPI, + chest pain, No orthopnea, No PND, No edema Abdomen: No pain, No nausea, No vomiting Objective Vital Signs Date Time Temp Pulse Resp B/P (MAP) Pulse Ox O2 Delivery O2 Flow Rate FiO2 08/08/17 16:00 96 Room Air 08/08/17 15:23 36.6 54 18 113/77 (89) 96 Room Air 08/08/17 12:00 Room Air 08/08/17 10:59 36.8 58 18 129/82 (98) 99 Room Air 08/08/17 08:00 Room Air 08/08/17 04:00 94 Room Air 08/08/17 04:00 65 114/71 (85) 94 Room Air 08/08/17 00:00 36.6 68 114/73 (87) 97 Room Air 08/08/17 00:00 97 Room Air 08/07/17 21:50 57 18 118/74 (89) 98 Room Air 08/07/17 20:50 60 18 117/65 (82) 95 Room Air 08/07/17 20:00 97 Room Air 08/07/17 20:00 36.8 65 18 127/73 (91) 97 Room Air 08/07/17 19:50 36.4 65 18 127/73 (91) 97 Room Air 08/07/17 18:50 36.4 60 18 112/66 (81) 95 Room Air 08/07/17 17:50 61 18 125/71 (89) 96 Room Air Physical Exam General Appearance: no apparent distress ENT: pharynx normal Neck: no JVD Respiratory/Chest: chest non-tender, lungs clear, normal breath sounds, no respiratory distress, no accessory muscle use Cardiovascular: regular rate, rhythm, no gallop, no murmur Abdomen: normal bowel sounds, non tender, soft, no organomegaly Extremities: no pedal edema Neurologic/Psychiatric: alert, oriented x 3 Skin: no rash (on chest or back or torso ) Laboratory Results Last 24 Hours Test 08/07/17 18:23 08/08/17 06:12 08/08/17 16:37 White Blood Count 5.98 K/uL 6.81 K/uL Red Blood Count 4.22 M/uL 4.48 M/uL Hemoglobin 14.2 g/dL 15.0 g/dL Hematocrit 39.2 % 41.6 % Mean Corpuscular Volume 92.9 fL 92.9 fL Mean Corpuscular Hemoglobin 33.6 pg 33.5 pg Mean Corpuscular Hemoglobin Concent 36.2 g/dl 36.1 g/dl Platelet Count 101 K/uL 106 K/uL Mean Platelet Volume 12.7 fL 13.9 fL Neutrophils (%) (Auto) 63.0 % Lymphocytes (%) (Auto) 29.6 % Monocytes (%) (Auto) 5.5 % Eosinophils (%) (Auto) 1.2 % Basophils (%) (Auto) 0.5 % Neutrophils # (Auto) 3.77 K/uL Lymphocytes # (Auto) 1.77 K/uL Monocytes # (Auto) 0.33 K/uL Eosinophils # (Auto) 0.07 K/uL Basophils # (Auto) 0.03 K/uL RDW Standard Deviation 41.0 fL 40.5 fL RDW Coefficient of Variation 12.2 % 12.0 % Immature Granulocyte % (Auto) 0.2 % Immature Granulocyte # (Auto) 0.01 K/uL Red Blood Cell Morphology Unremarkable Prothrombin Time 10.6 SECONDS Prothromb Time International Ratio 1.0 Activated Partial Thromboplast Time 26.0 SECONDS Partial Thromboplastin Ratio 1.0 Platelet Estimate DECREASED Sodium Level 138 mmol/L Potassium Level 4.3 mmol/L Chloride Level 109 mmol/L Carbon Dioxide Level 25 mmol/L Anion Gap 4.0 mmol/L Blood Urea Nitrogen 12 mg/dl Creatinine 0.86 mg/dl Est Creatinine Clear Calc Drug Dose 120.1 ml/min Estimated GFR () 120.5 Estimated GFR (Non- 104.0 BUN/Creatinine Ratio 13.6 Random Glucose 95 mg/dl Calcium Level 8.3 mg/dl Vitamin B12 Level 480 pg/mL Folate 13.43 ng/mL Erythrocyte Sedimentation Rate 9 mm/hr C-Reactive Protein 0.57 mg/dl Assessment and Plan 46yo male with: 1. ongoing chest pain - etiology of such has thus far been elusive. Cardiac cath yesterday by Dr. Ahn showed patent grafts from his CABG. Trops were all entirely normal. CTA chest negative for PE (I reviewed the study with radiology today and still no convincing evidence for PE). No evidence of musculoskeletal etiology although his symptoms improved transiently with toradol today. None of his pain reproduces on exam. No pericardial effusion although that does not r/o pericarditis; however, his history is not suggestive of pericarditis. With that said will check sed rate/crp and if elevated that may suggest pericarditis. If inflammatory markers are negative the only entity not ruled out would be an aortic dissection. Would order CT dissection protocol tonight if sed rate/crp are normal. 2. FEN - diet as tolerated, restart fluids if CT dissection protocol study is ordered, BMP in am. 3. hyperlipidemia - cont statin, LDL of 88; consider increase statin to 80mg once daily of lipitor. 4. tobacco use - staff counsel to quit. No evidence of bronchitis or pulmonary infection clinically. 5. CAD s/p CABG - records from [facility] in [place], [place] reviewed. Cont asa, statin, BB, etc. 6. DVT proph - if his stay becomes prolonged then add lovenox 40mg daily. 7. mild thrombocytopenia - b12/folate are normal. His MPV is elevated - this could represent a low-grade ITP state. He will need to have this worked up upon return to [place]. 8. headache - due to recent nitro use? tension? Other? treat symptoms for now. Neuro exam has been normal. updated twice today chest pain etiology needs to be ascertained and/or the pain needs to resolve before d/c home Continued [facility] stay due to: other (ongoing chest pain ) Discharge planning: home
[2017-08-08] MEDS: SODIUM CHLORIDE 0.9% 1000ML 1,000 ML IV SCH (17:45)
--- NOTE | 2017-08-08 18:32 | DIAGNOSTIC IMAGING REPORT ---
CHEST CTA for AORTIC DISSECTION CT DOSE: 813.03 mGy.cm HISTORY: Atypical chest pain. TECHNIQUE: Multiaxial CT images of the chest were performed both before and after the intravenous administration of contrast to evaluate the aorta. Maximal intensity projection images were also obtained. A dose lowering technique was utilized adhering to the principles of ALARA. COMPARISON STUDY: Chest CTA 08/07/2017. FINDINGS: Noncontrast imaging through the chest shows no evidence for an intramural hematoma within the thoracic aorta. The thoracic aorta is normal in course and caliber with no evidence for dissection. The central pulmonary arteries appear patent. The heart is normal in size. No pleural or pericardial effusions. Poststernotomy changes. No mediastinal or hilar lymphadenopathy. The visualized liver, spleen, and adrenal glands are unremarkable. No acute fractures within the visualized osseous structures. No pneumothorax. The central airways are patent. A 3 mm nodule within the left upper lobe on image 126. The lungs are otherwise clear. IMPRESSION: 1. No evidence for an aortic dissection. 2. A 3 mm nodule within the left upper lobe. Please refer to the chart below for recommended follow-up. Please refer to below summary of Fleischner criteria recommendations for follow-up of incidental CT nodules (Patricia Samuel, Guidelines for management of small pulmonary nodules detected on CT scans: A statement from the Fleischner Society, Radiology 237: [id number].) SOLID NODULES Solitary nodule size: <6 mm * Low risk patients: no follow-up needed * high risk patients: optional CT at 12 months Solitary nodule size: 6-8 mm * Low risk patients: follow-up at 6-12 months, then consider further follow-up at 18-24 months * high risk patients: initial follow-up CT at 6-12 months and then at 18-24 months if no change Solitary nodule size: >8 mm * either low or high risk patients - consider follow-up CT at 3 months, and/or CT-PET, and/or biopsy Multiple nodules size: <6 mm * Low risk patients: no routine follow-up * high risk patients: optional CT at 12 months Multiple nodules size: 6-8 mm * Low risk patients: follow-up at 3-6 months, then consider further follow-up at 18-24 months * high risk patients: follow-up at 3-6 months, then at 18-24 months if no change Multiple nodules size: >8 mm * Low risk patients: follow-up at 3-6 months, then consider further follow-up at 18-24 months * high risk patients: follow-up at 3-6 months, then at 18-24 months if no change Note: newly detected indeterminate nodule in persons 35 years of age or older. * Low risk patients: minimal or absent history of smoking and/or other known risk factors * high risk patients: history of smoking or of other known risk factors (e.g. first degree relative with lung cancer, or exposure to asbestos, radon, uranium) * if a nodule up to 8 mm is partly solid or is ground glass further follow-up is required after 24 months to exclude possible slow growing adenocarcinoma (MIRELA) SUBSOLID NODULES Solitary pure ground-glass nodule * nodule size <6 mm - no CT follow-up required * nodule size >=6 mm - follow-up CT at 6-12 months, then every 2 years until 5 years Solitary part-solid nodule * nodule size <6 mm - no CT follow-up required * nodule size >=6 mm - follow-up CT at 3-6 months. If unchanged, and solid component remains <6 mm, then annual follow-up for 5 years Multiple subsolid nodules * nodule size <6 mm - follow-up CT at 3-6 months, consider further follow-up at 2 and 4 years if stable * nodule size >=6 mm - follow-up CT at 3-6 months, subsequent management based on the most suspicious nodule(s) Electronically signed by: Jason Mendoza M.D. 08/08/2017 6:31 PM Dictated Date/Time: 08/08/2017 6:24 PM
[2017-08-08] MEDS: ATORVASTATIN 40 MG TAB PO SCH (20:47)
[2017-08-09 00:23] VITALS: BP 112/78; PULSE 71; TEMP 36.5; O2SAT 98
[2017-08-09 04:31] VITALS: BP 122/80; PULSE 70; TEMP 36.7; O2SAT 96
[2017-08-09] MEDS: SODIUM CHLORIDE 0.9% 1000ML 1,000 ML IV SCH (06:41)
[2017-08-09] MEDS: ACETAMINOPHEN 325 MG TAB PO PRN (07:31)
[2017-08-09] MEDS: ASPIRIN 81 MG ECTAB PO SCH (07:32)
[2017-08-09] MEDS: NICOTINE 14 MG/24 HR TDSY TD SCH (07:32)
[2017-08-09] MEDS: NEBIVOLOL HCL 5 MG TAB PO SCH (07:32)
[2017-08-09] MEDS: PANTOprazole SOD 40 MG TAB PO SCH (07:32)
[2017-08-09 07:35] LABS: CALCIUM 8.3 mg/dl (8.5-10.1); CREATININE 0.8 mg/dl (0.60-1.40); POTASSIUM 4.2 mmol/L (3.5-5.1)
[2017-08-09 07:36] VITALS: BP 118/81; PULSE 61; TEMP 36.4; O2SAT 97
[2017-08-09] MEDS ORDERED: NAPR-1169 PO (09:37)
[2017-08-09] MEDS ORDERED: NTRSLP4 SL (09:37)
[2017-08-09] MEDS ORDERED: ATOR80TA PO (09:37)
--- NOTE | 2017-08-09 09:50 | Discharge Instructions ---
Discharge Instructions Date of Service Aug 09, 2017. Admission Reason for Admission: Chest Pain Discharge Discharge Diagnosis / Problem: Chest pain - resolved; possibly musculoskeletal in origin Discharge Goals Goal(s): Learn about illness, Diagnostic testing, Therapeutic intervention Activity Recommendations Activity Limitations: as noted below Exercise/Sports Limitations: until after follow-up appointment May Resume Sexual Activity: after follow-up appointment Instructions following your femoral cardiac catheterization: * Do not strain during bowel movements for the first 3 to 4 days after the procedure to prevent bleeding from the catheter insertion site. * Avoid heavy lifting (no more than 10 pounds) and pushing or pulling heavy objects for the first 5 to 7 days after the procedure. * Do not participate in strenuous activities for 5 days after the procedure. This includes most sports - jogging, bowling, going to the gym, etc. * You may climb stairs if needed, but walk up and down the stairs more slowly than usual. * Gradually increase your activities until you reach your normal activity level within one week after the procedure. * At this time you may shower, but do not take a tub bath or immerse the right groin in water for another 2 days. . Instructions / Follow-Up Instructions / Follow-Up From Dr. Aguayo - 1. chest pain - the etiology of the pain is not 100% certain. However, the pain could have been musculoskeletal in origin. The other possibility is that of "small vessel disease" in the heart itself. The latter is treated with heart medications only. I suspect the pain was muscular in origin, however. If you have mild pain in the next couple of days may use naprosyn 500mg up to twice a day as needed. Again your testing showed normal heart function, patent heart grafts, no blood clots in the lungs, and no aortic dissection or aneurysm. If at any time the pain worsens, persists, or has any features similar to your chest pain that led up to your open heart surgery please take nitroglycerin by mouth and report to any emergency room [facility]. 2. cholesterol - your LDL cholesterol was 88. I would recommend, in light of your heart history, to keep your LDL (the "bad" cholesterol) below 70. Please increase your lipitor to 80mg once daily. New prescription provided. 3. You have a 3mm nodule in the left lung towards the top of the lung (left upper lobe). The vast majority of nodules are benign and not of concern. However, I would recommend a repeat CAT scan of the lungs in 1 year to ensure it does not grow. 4. Please quit smoking if at all possible. 5. See Dr. Ahn, [facility], in 1-2 weeks. 6. Report back to [facility] if - * you develop recurrent chest pain that is not responding to medications, becomes severe, etc. * you develop shortness of breath that does not resolve * severe headache occurs * severe dizziness occurs * any other concerns 7. Your platelet count was mildly low in the 100-110 range. Normal is technically 150 or higher. A platelet count that is mildly low is usually not of concern but does deserve follow-up. I would simply recommend having a repeat CBC (Blood count) as an outpatient in a couple of weeks to ensure stability. I suspect that this may be a chronic entity. Current Hospital Diet Patient's current hospital diet: AHA Diet (Heart Healthy) Discharge Diet Recommended Diet: AHA Diet (Heart Healthy) Procedures Procedures Performed: 1. echocardiogram - normal heart function & normal valves. 2. cardiac catheterization - all of your grafts from your open heart surgery are patent (open and blood is flowing nicely through the arteries). 3. CAT scan of the lungs - no evidence of blood clots, aneurysm, dissection, fluid, pneumonia, or other abnormalities except a tiny 3mm nodule. Pending Studies Studies pending at discharge: no Laboratory Results Hemoglobin A1c Test 08/07/17 06:14 Range/Units Estimated Average Glucose 100 mg/dl Hemoglobin A1c 5.1 4.5-5.6 % Lipid Panel Test 08/07/17 06:14 Range/Units Triglycerides Level 135 0-150 mg/dl Cholesterol Level 166 0-200 mg/dl HDL Cholesterol 51 mg/dl Cholesterol/HDL Ratio 3.3 LDL Cholesterol, Calculated 88 mg/dl Work Instructions Lifting Limitations: no more than 10 pounds Additional Instructions: Mr. Whyte was hospitalized at [facility] from 08/06/17 to 08/09/17. Please excuse him from work. He may return to work on 08/11/17 - however, he may not lift heavy objects beyond 10 pounds or push/pull heavy objects for 1 week due to recent testing at [facility]. Medical Emergencies . Who to Call and When: Medical Emergencies: If at any time you feel your situation is an emergency, please call 911 immediately. . Non-Emergent Contact Non-Emergency issues call your: Employment Coach Call Non-Emergent contact if: your pain is not controlled, your pain is worsening, your pain is unusual for you, your pain is concerning you, wound has increased drainage (from the right groin), wound has increased redness, wound has increased pain, you have any medication questions . . "Provider Documentation" section prepared by Stuart Aguayo. . VTE Core Measure Inpt VTE Proph given/why not?: Enoxaparin (Lovenox)SQ
[2017-08-09 10:08] VITALS: BP 118/81; PULSE 61; TEMP 36.4; O2SAT 97
--- NOTE | 2017-08-10 21:42 | Discharge Summary ---
Discharge Summary Date of Service Aug 10, 2017. Discharge Summary Admission Date: Aug 06, 2017 at 16:22 Discharge Date: Aug 09, 2017 Discharge Disposition: Home Principal Diagnosis: chest pain, etiology uncertain, possibly musculoskeletal Problems/Secondary Diagnoses: 1. CAD s/p CABG 2. tobacco dependence 3. hyperlipidemia 4. mild thrombocytopenia - follow-up advised 5. DEYSI pulmonary nodule - repeat CT scan in 1 year advised Procedures: 1. cardiac catheterization: Tra Ahn MD Findings: LM - 40-50% diffuse distal disease LAD - Diffuse proximal to mid 70-80% disease; subtotal occlusion in mid segment after take-off of 1st diagonal. Circumflex - Tapers in mid segment and occluded distally. Obtuse marginals occluded ostially. RCA - Dominant, diffuse, proximal to mid 80% disease; distal luminal irregularities. VALLES-LAD - widely patent; distal LAD with luminal irregularities as wraps around apex. SVG-OM2 - large vessel, widely patent; gives off Y graft to OM1 and large ramus SVG-COST RECORDER - Widely patent 2. CTA chest - negative for PE or other pathology. 3. CTA dissection protocol - IMPRESSION: 1. No evidence for an aortic dissection. 2. A 3 mm nodule within the left upper lobe. 4. echocardiogram - -- Conclusions -- * 1. Normal LV size and wall thickness. * 2. Normal LV systolic function. LVEF 60-65%. No regional wall motion abnormalities. * 3. Mildly dilated RV. Normal RV function. * 4. Mildly dilated right atrium * 5. Normal estimated PA and RA pressures. * 6. Doppler suggestive of possible left to right flow across atrial septum. * 7. No prior studies for comparison. Consultations: cardiology - Tra Ahn MD Medication Reconciliation New Medications: Naproxen (Naprosyn) 500 Mg Tab 500 MG PO BID PRN for Pain, #14 TAB 0 Refills Nitroglycerin (Nitrostat) 0.4 Mg/1 Tab Subl 0.4 MG SL [id number] PRN for Chest Pain, #1 BTL 0 Refills max 3 tabs in 15 minutes Changed Medications: Atorvastatin (Lipitor) 80 Mg Tab 1 TAB PO DAILY for 30 Days, #30 TAB 5 Refills (Changed from: Atorvastatin ( Lipitor) 40 Mg Tab 40 Mg PO HS) Continued Medications: Aspirin (Aspirin Ec) 81 Mg Tab 81 MG PO DAILY Lansoprazole (Prevacid) 15 Mg Capcr 15 MG PO DAILY Nebivolol Hcl (Bystolic) 5 Mg Tab 5 MG PO DAILY Referrals At Discharge Follow up Referrals: Cold Storage Supervisor Referral - Within 1-2 Weeks with Tra Ahn MD Discharge Exam Physical Exam: General Appearance: WD/WN, no apparent distress ENT: pharynx normal Neck: no JVD Respiratory/Chest: chest non-tender, lungs clear, normal breath sounds, no respiratory distress, no accessory muscle use Cardiovascular: regular rate, rhythm, no gallop, no murmur, normal peripheral pulses Abdomen / GI: normal bowel sounds, non tender, soft, no organomegaly Extremities: no pedal edema Neurologic/Psychiatric: alert, oriented x 3 Skin: + pertinent finding (right groin - prior femoral cath site clean, no hematoma, no drainage) Hospital Course HISTORY OF PRESENT ILLNESS: 46yo male with history of HTN, hyperlipidemia, tobacco dependence, and CAD s/p 4 vessel CABG in 2013 who presented with central and left-sided chest pain intermittently for 2-3 days. Initially occurred 2 days ago while walking and was accompanied by SOB, nausea and diaphoresis, radiating to his L arm. He was admitted overnight to [facility] at that time, had serial cardiac enzymes that were negative, and he was discharged home. The pain recurred today and thus he presented to the [facility] ER. His pain was subsequently relieved by nitroglycerin in the ER. He reported that the pain was similar to the pain which preceded his diagnosis of CAD and CABG 3 years ago. HOSPITAL COURSE: Following admission the patient continued to have left-sided chest pain. Despite the persistent pain serial cardiac enzymes were negative and EKGs remained normal/without ischemic changes. He was initiated on heparin drip in the event he was having unstable angina. Dr. Tra Ahn from [facility] was consulted who recommended left heart catheterization. The cardiac cath showed patent grafts from his prior CABG. Following his cardiac catheterization he underwent a CTA of the chest and this was negative for PE. Heparin drip was discontinued at that time. The patient continued to have waxing/waning left-sided chest pain and thus he underwent more work-up including echocardiogram, sed rate/crp, and CTA dissection protocol. All studies were normal/negative. During his stay the patient was given NSAIDs with relief of his symptoms. Thus, it was felt that his pain was possibly due to a musculoskeletal etiology ( even despite not having any reproducible symptoms on exam). Pericarditis was felt to be unlikely given his normal echo, normal EKGs, the character/timing of his pain, and normal sed rate/crp. He had no GI symptoms to suggest a GI etiology. About 24 hours prior to discharge the patient's pain finally resolved and did not recur. At discharge the following were recommended - 1. naprosyn 500mg q12h prn pain 2. resumption of statin therapy (the patient had been off his statin for some time); of note, LDL on lipid profile was 88 3. tobacco cessation 4. continuation of beta macarena and aspirin 5. repeat chest CT in 1 year for the incidentally found DEYSI lung nodule 6. routine CBC in several weeks to ensure stability of his mild thrombocytopenia (I suspect this may be chronic) The patient's state of permanent residence is [place]. 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 Thus, he was advised to follow-up with Dr. Tra Ahn in 1-2 weeks after discharge at the [facility] office. Total Time Spent: Greater than 30 minutes This includes examination of the patient, discharge planning, medication reconciliation, and communication with other providers. Discharge Instructions Please refer to the electronic Patient Visit Report (Discharge Instructions) for additional information. Follow-Up see Dr. Tra Ahn, cardiology, within 1-2 weeks Additional Copies To Tra Ahn MD
== END 2017-08-09 10:30 | disposition home or self-care (01) ==
LOC: C.EDB 13:44 → C.2T 16:22 → ENRESERV 18:00
PROVIDERS: ADMIT Internal Medicine; ATTEND Internal Medicine
DX: R07.9 Chest pain, unspecified (principal); I25.10 Atherosclerotic heart disease of native coronary artery without angina pectoris; E78.5 Hyperlipidemia, unspecified; D69.6 Thrombocytopenia, unspecified; R91.1 Solitary pulmonary nodule; F17.210 Nicotine dependence, cigarettes, uncomplicated; I10 Essential (primary) hypertension; Z95.1 Presence of aortocoronary bypass graft; Z79.82 Long term (current) use of aspirin; Z82.49 Family history of ischemic heart disease and other diseases of the circulatory system